=== PATIENT | female | born 1955 | race African-American/Black ===

== ENCOUNTER 2018-07-22 21:00 | Emergency (ER) | payer OTHER ==
[~2018-07-22] VITALS: Ht 172.7 cm; Wt 72.7 kg
[~2018-07-22 21:00] MED LIST: AMOX500C2 PO; ASPI-12 PO; TRAM50TA4 PO
[2018-07-22 23:06] VITALS: BP 148/80
== END 2018-07-22 23:19 | disposition home or self-care (01) ==
LOC: EMS 21:01
DX: B35.3 Tinea pedis (principal); Z59.0 Homelessness

== ENCOUNTER 2019-04-16 21:28 | Emergency (ER) | payer OTHER ==
[~2019-04-16] VITALS: Ht 172.7 cm; Wt 77.3 kg
[2019-04-16] MEDS ORDERED: HYDR-1475 PO (21:40)
[2019-04-16 22:20] LABS: BASOPHILS % (AUTO) 0.3 % (0.0-2.0); EOSINOPHILS % (AUTO) 0.2 % (1.0-6.0); HEMATOCRIT 40.9 % (36-46); HEMOGLOBIN 13.3 g/dL (12.0-16.0); LYMPHOCYTES # (AUTO) 1.1 K/uL (1.0-4.8); MEAN CORPUSCULAR HEMOGLOBIN 30.3 pg (26.0-34.0); MEAN CORPUSCULAR HGB CONC 32.5 G/dL (31.0-37.0); MEAN CORPUSCULAR VOLUME 93 fL (80-100); MONOCYTES # (AUTO) 1.2 K/uL (0.1-1.0); MONOCYTES % (AUTO) 22.6 % (2.0-9.0); NEUTROPHILS # (AUTO) 3.1 K/uL (1.8-7.7); NEUTROPHILS % (AUTO) 56.9 % (40.0-70.0); PLATELET COUNT (AUTO) 141 K/uL (150-450); RED CELL DISTRIBUTION WIDTH 12.9 % (11.5-14.5)
[2019-04-16 22:28] LABS: ANION GAP 8 mmol/L (8-16); CALCIUM, TOTAL 8.6 mg/dL (8.8-10.5); CARBON DIOXIDE 31 mmol/L (22-29); CHLORIDE 101 mmol/L (98-107); CREATININE 0.79 mg/dL (0.60-1.30); GLOMERULAR FILTR. RATE CALC > 60 mL/min (>60); GLUCOSE,RANDOM 141 mg/dL (70-110); POTASSIUM 3.2 mmol/L (3.5-5.1); SODIUM SERUM 140 mmol/L (136-145); UREA NITROGEN, BLOOD 14 mg/dL (7-18)
[2019-04-16 22:36] LABS: ALANINE AMINOTRANSFERASE 30 U/L (12-78); ALBUMIN 3.3 g/dL (3.4-5.0); ALKALINE PHOSPHATASE 93 U/L (46-116); ASPARTATE AMINOTRANSFERASE 22 U/L (15-37); BILIRUBIN,TOTAL 0.2 mg/dL (0.1-1.0); TOTAL PROTEIN, SERUM 7.5 g/dL (6.4-8.2)
[2019-04-16 23:31] VITALS: BP 162/84
== END 2019-04-17 00:09 | disposition home or self-care (01) ==
LOC: EMS 21:29
DX: R05 Cough (principal); R09.89 Other specified symptoms and signs involving the circulatory and respiratory systems; Z59.0 Homelessness

== ENCOUNTER 2021-09-10 15:36 | Emergency (ER) | payer OTHER ==
[~2021-09-10] VITALS: Ht 170.2 cm; Wt 68.2 kg
[~2021-09-10 15:36] MED LIST changes: -AMOX500C2 PO; -ASPI-12 PO; +HYDR-4870 PO; -TRAM50TA4 PO
[2021-09-10 17:44] VITALS: BP 126/75
== END 2021-09-10 17:52 | disposition home or self-care (01) ==
LOC: EMS 15:40
DX: I83.892 Varicose veins of left lower extremity with other complications (principal)
CPT/HCPCS: 93971; 99284; Z7502

== ENCOUNTER 2021-10-08 13:43 | Emergency (ER) | payer OTHER ==
[~2021-10-08] VITALS: Ht 172.7 cm; Wt 68.2 kg
[~2021-10-08 13:43] MED LIST changes: -HYDR-4870 PO; +HYDR25TA2 PO
[2021-10-08 19:54] VITALS: BP 136/95
== END 2021-10-08 22:26 | disposition left against medical advice (07) ==
LOC: EMS 13:51
DX: M79.605 Pain in left leg (principal); Z79.899 Other long term (current) drug therapy
CPT/HCPCS: 99281; Z7502

== ENCOUNTER 2021-10-11 14:21 | Emergency (ER) | payer OTHER ==
[~2021-10-11] VITALS: Ht 172.7 cm; Wt 68.2 kg
[2021-10-11 16:34] VITALS: BP 146/93
== END 2021-10-11 17:12 | disposition home or self-care (01) ==
LOC: EMS 14:21
DX: M79.605 Pain in left leg (principal); Z79.899 Other long term (current) drug therapy
CPT/HCPCS: 99283